=== PATIENT | male | born 1970 | race Caucasian/White ===

== ENCOUNTER 2023-02-22 12:39 | Day surgery (SDC) | payer OTHER ==
[2023-02-22 12:54] VITALS: BMI 27.4
[2023-02-22 13:42] VITALS: TEMP 97.6
[2023-02-22 14:09] VITALS: RESP 18
[2023-02-22 14:11] VITALS: BP 106/67; PULSE 82
== END 2023-02-22 14:37 | disposition home or self-care (01) ==
LOC: JASU-ENDO 12:39
PROVIDERS: ATTEND Internal Medicine Gastroenterology
PROC: 0DB98ZX Excision of Duodenum, Via Natural or Artificial Opening Endoscopic, Diagnostic (ICD-10-PCS; 2023-02-22)
PROC: 0DB78ZX Excision of Stomach, Pylorus, Via Natural or Artificial Opening Endoscopic, Diagnostic (ICD-10-PCS; 2023-02-22)
PROC: 0DB68ZX Excision of Stomach, Via Natural or Artificial Opening Endoscopic, Diagnostic (ICD-10-PCS; 2023-02-22)
PROC: 0DJD8ZZ Inspection of Lower Intestinal Tract, Via Natural or Artificial Opening Endoscopic (ICD-10-PCS; principal; 2023-02-22 12:00)
DX: Z12.11 Encounter for screening for malignant neoplasm of colon (principal); K29.50 Unspecified chronic gastritis without bleeding; D50.9 Iron deficiency anemia, unspecified
CPT/HCPCS: 43239; G0121; 88305-TC; 88342-TC